=== PATIENT | male | born 1990 | race Caucasian/White ===

== ENCOUNTER 2021-10-16 01:30 | Emergency (ER) | payer OTHER ==
[~2021-10-16] VITALS: Ht 182.9 cm; Wt 131.8 kg
--- NOTE | 2021-10-16 02:04 | PHYS DOC ---
Past History Past Medical History: Anxiety, Hypertension General Adult EDM: Chief Complaint: ANXIETY/PANIC ATTACK HPI: HPI: ".. I ve been having episodes of really fast heart rate .. for no reason.. I have anxiety and depression.. but the anxiety and panic comes after I have these periods of super fast heart rate.... I almost get dizzy when it is beating really fast..... I have recorded my heart rates on my phone.... He can see either periods of time where it is almost 200..... This last episode I was just watching cartoons... Getting ready to go to bed.. " Patient is a 31 year old male who presents with above hx and complaints of tachycardia and panic attack. Pt. has recorded with his cell phone episodes of tachycardia . Patient had several episodes of heart rate at or near 200 that came on abruptly and ended abruptly. The last episode patient was watching cartoons getting ready to go to bed. Patient does not consume caffeine products to excess. May be 1 cup of coffee a day. No illicit drugs reported. No energy drinks. Patient does smoke cigarettes. No history of prior cardiac disorders. Has had a history of anxiety and depression in the past. Patient no longer on any antidepressant or anxiety meds. Patient follows with Dr. Do at [facility]. Patient states he took a new job to avoid stressful work. 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 Patient states this is not a stressful position. Patient has not gotten Covid vaccination. Patient has not gotten flu vaccination. Patient has not gotten a Pneumovax. As a child he did have some episodes of asthma and bronchitis. Patient usually goes to [facility] for his care. Patient states he has no significant stressful events currently in his life. Pt. kennedys with Dr. Do. Review of Systems: Review of Systems: Constitutional: Denies fever or chills Eyes: Denies change in visual acuity HENT: Denies nasal congestion or sore throat Respiratory: Denies cough or shortness of breath Cardiovascular: Complaints of episodes of tachycardia GI: Denies abdominal pain, nausea, vomiting, bloody stools or diarrhea : Denies dysuria Musculoskeletal: Denies back pain or joint pain Integument: Denies rash Neurologic: Denies headache, focal weakness or sensory changes Endocrine: Denies polyuria or polydipsia Lymphatic: Denies swollen glands Psychiatric: Complains of depression, anxiety and panic attacks Family History: Family History: Noncontributory to presentation Current Medications: Current Meds: See nursing for home meds Allergies: Allergies: No known drug allergies Physical Exam: PE: Constitutional: no acute distress, non-toxic appearance. [] HENT: Normocephalic, atraumatic, bilateral external ears normal, oropharynx moist, no oral exudates, nose normal. Full anderson Eyes: PERRLA, EOMI, conjunctiva normal, no discharge. [] Neck: Normal range of motion, no tenderness, supple, no stridor. [] More than 17 inches circumference Cardiovascular: Tachycardia heart rate regular rhythm, no murmur [] current bedside monitor shows a heart rate of 92 -100 sinus rhythm Lungs & Thorax: Bilateral breath sounds equal apex with scattered wheezes on auscultation [] Abdomen: Bowel sounds normal, soft, no tenderness, no masses, no pulsatile masses. Obese Skin: Warm, dry, no erythema, no rash. [] Back: No tenderness, no CVA tenderness. [] Extremities: No tenderness, no cyanosis, no clubbing, ROM intact, no edema. No cording appreciated Neurologic: Alert and oriented X 3, normal motor function, normal sensory function, no focal deficits noted. [] Psychologic: Affect anxious, judgement normal, mood normal. [] EKG: EKG: My interpretation EKG shows a sinus tachycardia 101 bpm. There is some leftward axis changes. But no findings of acute STEMI with contralateral changes. Time of this EKG is 345 hours My interpretation of second EKG shows a sinus rhythm at 88 bpm and some leftward axis. But no findings of acute STEMI with contralateral change overall morphology is similar to prior EKG time of this EKG is 0431 hrs. [] Radiology/Procedures: Radiology/Procedures: [][address] [address] IMAGING REPORT Signed PATIENT: BARBARA MONTOYA CACCOUNT: [id number] : 1990 LOCATION: ER AGE: 31 SEX: M EXAM STATUS: REG ER ORD. PHYSICIAN: NATALYA TITUS MD REASON: tachy, dyspnea PROCEDURE: PORTABLE CHEST 1V AP chest x-ray HISTORY: Tachycardia and dyspnea. FINDINGS: Heart size is normal. Mediastinal silhouette is normal. No pneumothorax, pulmonary opacities or pleural effusions. Bones are unremarkable. IMPRESSION: No acute process evident. Electronically signed by: Marisela Hernandez MD (10/16/2021 3:59 AM) [facility] [place] DICTATED AND SIGNED BY: MARISELA HERNANDEZ MD DATE: 10/16/21357 CC: NATALYA TITUS MD; MORRIS DO ~MTH0 0 Heart Score: C/O Chest Pain: No HEART Score for Chest Pain: HEART Score for Chest Pain Response (Comments) Value History Slighlty/Non-Suspicious 0 ECG Nonspecific Repolarizatio 1 Risk Factors 1 or 2 Risk Factors 1 Troponin < Normal Limit 0 Total 2 Risk Factors: Risk Factors: DM, Current or recent (<one month) smoker, HTN, HLP, family history of CAD, obesity. Risk Scores: Score 0 - 3: 2.5% MACE over next 6 weeks - Discharge Home Score 4 - 6: 20.3% MACE over next 6 weeks - Admit for Clinical Observation Score 7 - 10: 72.7% MACE over next 6 weeks - Early Invasive Strategies Course & Med Decision Making: Course & Med Decision Making Pertinent Labs and Imaging studies reviewed. (See chart for details) Patient is avoid caffeine products and energy drinks. Patient to take a daily baby aspirin. Patient to take metoprolol 25 mg twice a day. If this provides adequate relief of his Paroxysmal supraventricular tachycardia with limited side effects could take an one-time dose at night.. Patient follow-up with primary care. Patient had primary care review record. Patient consider o utpatient stress testing. Patient return if any concerns. Encourage patient to stop smoking. Consider outpatient Holter monitoring. Impression: 1. Paroxysmal supraventricular tachycardia - suspect 2. Hypertension 3. Obesity 4. Tobacco use 5. History of anxiety 6. History of depression [] Dragon Disclaimer: Draggloria Disclaimer: This electronic medical record was generated, in whole or in part, using a voice recognition dictation system. Departure Departure: Referrals: MORRIS DO (PCP) Scripts Metoprolol Succinate (METOPROLOL SUCCINATE ( XL )) 25 Mg Tab.er.24h 25 MG PO DAILY PRN for BID, #60 TAB 0 Refills Prov: NATALYA TITUS MD 10/16/21 Feliz Disclaimer This chart was dictated in whole or in part using Voice Recognition software in a busy, high-work load, and often noisy Emergency Department environment. It may contain unintended and wholly unrecognized errors or omissions. NATALYA TITUS MD Oct 16, 2021 02:04
[2021-10-16] MEDS ORDERED: IV RINGERS SOLUTION,LACTATED 1,000 ML IV SCH (03:00)
[2021-10-16 03:43] LABS: BASO % 0 % (0-3); EOS # 0.3 x10^3/uL (0.0-0.7); EOS % 3 % (0-3); HEMATOCRIT 44.5 % (39.0-53.0); HEMOGLOBIN 15.1 g/dL (13.0-17.5); LYMPH # 2.8 x10^3/uL (1.0-4.8); LYMPH % 27 % (24-48); MEAN CORPUSCULAR HEMOGLOBIN 30 pg (25-35); MEAN CORPUSCULAR HGB CONC 34 g/dL (31-37); MEAN CORPUSCULAR VOLUME 89 fL (79-100); MONO # 0.9 x10^3/uL (0.0-1.1); MONO % 9 % (0-9); NEUT # 6.5 x10^3uL (1.8-7.7); NEUT % 62 % (31-73); PLATELET COUNT 290 x10^3/uL (140-400); RED BLOOD COUNT 4.99 x10^6/uL (4.30-5.70); RED CELL DISTRIBUTION WIDTH 13.4 % (11.5-14.5); WHITE BLOOD COUNT 10.5 x10^3/uL (4.0-11.0)
[2021-10-16 03:44] LABS: ANION GAP 7 (6-14); BLOOD UREA NITROGEN 18 mg/dL (8-26); CALCIUM 8.9 mg/dL (8.5-10.1); CARBON DIOXIDE 27 mmol/L (21-32); CHLORIDE 108 mmol/L (98-107); GFR 87.7; GLUCOSE 103 mg/dL (70-99); SODIUM 142 mmol/L (136-145)
[2021-10-16 03:46] LABS: BACTERIA,URINE 0 /HPF (0-FEW); BARBITURATES NEG (NEG); BENZODIAZEPINES NEG (NEG); BILIRUBIN,URINE NEG (NEG); CANNABINOIDS NEG (NEG); CLARITY,URINE CLEAR; COCAINE NEG (NEG); COLOR,URINE YELLOW; GLUCOSE,URINE NEG (NEG); METHADONE NEG (NEG); NITRITE,URINE NEG (NEG); OPIATES NEG (NEG); PHENCYCLIDINE NEG (NEG); RBC,URINE 0 /HPF (0-2); SQUAMOUS EPITHELIAL CELL,UR OCC /LPF; UROBILINOGEN,URINE 0.2 mg/dL (0.2 mg/dL); WBC,URINE RARE /HPF (0-4)
[2021-10-16 03:48] LABS: AMPHETAMINE/METHAMPHETAMINE NEG (NEG)
[2021-10-16 03:50] LABS: ALBUMIN 3.7 g/dL (3.4-5.0); ALK PHOS 83 U/L (46-116); ALT (SGPT) 50 U/L (16-63); AST (SGOT) 30 U/L (15-37); LIPASE 103 U/L (73-393); MAGNESIUM 2.4 mg/dL (1.8-2.4); TOTAL BILIRUBIN 0.2 mg/dL (0.2-1.0); TOTAL PROTEIN 7.9 g/dL (6.4-8.2)
[2021-10-16 03:54] LABS: DIRECT BILIRUBIN < 0.1 mg/dL (0.0-0.2); POTASSIUM 4.5 mmol/L (3.5-5.1)
[2021-10-16 03:56] LABS: INFLUENZA A PATIENT NEGATIVE (NEGATIVE); INFLUENZA B PATIENT NEGATIVE (NEGATIVE)
--- NOTE | 2021-10-16 04:01 | RAD ---
AP chest x-ray HISTORY: Tachycardia and dyspnea. FINDINGS: Heart size is normal. Mediastinal silhouette is normal. No pneumothorax, pulmonary opacitie s or pleural effusions. Bones are unremarkable. IMPRESSION: No acute process evident. Electronically signed by: Davin Hernandez MD (10/16/2021 3:59 AM) [facility]
--- NOTE | 2021-10-16 04:03 | EKG ---
[address] [address] Test Date: 2021-10-16 Test Time: 03:45:33 Pat Name: BARBARA MONTOYA Department: Room: Gender: M Telephonic Nurse: NAOMI : 1990 Requested By: NATALYA TITUS Order Number: [id number] Reading MD: Gorge Lopez MD Measurements Intervals [place] Rate: 101 P: 54 IA: 178 QRS: -3 QRSD: 86 T: 17 QT: 312 QTc: 405 Interpretive Statements SINUS TACHYCARDIA Electronically Signed On 10-16-2021 9:18:07 OIL REFINERY PROCESS TECHNICIAN by Gorge Lopez MD
[2021-10-16] MEDS ORDERED: METO-239 PO (04:15)
[2021-10-16] MEDS ORDERED: METOPROLOL SUCC 24HR ER 25 MG TAB.ER.24H. PO ONE (04:15)
--- NOTE | 2021-10-16 04:39 | EKG ---
[facility] [address] [place] [address] Test Date: 2021-10-16 Test Time: 04:31:49 Pat Name: BARBARA MONTOYA Department: Room: Gender: Bank Advisor: NAOMI : 1990 Requested By: NATALYA TITUS Order Number: [id number] Reading MD: Measurements Intervals [place] Rate: 88 P: 51 MA: 176 QRS: -11 QRSD: 96 T: 11 QT: 332 QTc: 405 Interpretive Statements SINUS RHYTHM LEFTWARD AXIS OTHERWISE NORMAL ECG RI6.02 No previous ECG available for comparison
[2021-10-16 04:40] VITALS: BP 140/83
[2021-10-16 16:04] LABS: THYROID STIM HORMONE (TSH) 5.328 uIU/mL (0.358-3.740)
== END 2021-10-16 05:22 | disposition home or self-care (01) ==
LOC: ER 01:30
DX: I10 Essential (primary) hypertension (principal); F41.9 Anxiety disorder, unspecified; F32.9 Major depressive disorder, single episode, unspecified; E66.9 Obesity, unspecified; F17.210 Nicotine dependence, cigarettes, uncomplicated; Z20.822 Contact with and (suspected) exposure to COVID-19; Z68.39 Body mass index [BMI] 39.0-39.9, adult
CPT/HCPCS: 36415; 71045; 80048; 80061; 80076; 80307; 81001; 82550; 83690; 83735; 84443; 84484; 85025; 85379; 85610; 85730; 87426; 87804; 93005; 96360; 99285; C9803; J7120; U0003